=== PATIENT | female | born 1950 | race Caucasian/White ===

== ENCOUNTER 2016-10-22 09:32 | Outpatient (CLI) | payer OTHER | END 2016-10-22 09:33 | disposition home or self-care (01) | DX: E03.9 Hypothyroidism, unspecified (principal); E78.5 Hyperlipidemia, unspecified ==

== ENCOUNTER 2018-01-21 08:31 | Outpatient (CLI) | payer OTHER ==
[2018-01-21 09:01] LABS: BASOPHILS # (AUTO) 0.1 10^3/uL (0.0-0.1); EOSINOPHILS # (AUTO) 0.2 10^3/uL (0.0-0.7); EOSINOPHILS % (AUTO) 2.9 %; HGB - HEMOGLOBIN 14.1 g/dL (12.0-16.0); LYMPHOCYTES # (AUTO) 1.6 10^3/uL (1.5-3.5); LYMPHOCYTES % (AUTO) 28.3 %; MEAN CORPUSCULAR HEMOGLOBIN 31.6 pg (27.0-31.0); MEAN CORPUSCULAR HGB CONC 33.3 g/dL (32.0-36.0); MEAN CORPUSCULAR VOLUME 94.9 fL (81.0-99.0); MEAN PLATELET VOLUME 8.2 fL (7.9-10.8); MONOCYTES # (AUTO) 0.5 10^3/uL (0.0-1.0); MONOCYTES % (AUTO) 8.6 %; NEUTROPHILS # (AUTO) 3.3 10^3/uL (1.5-6.6); NEUTROPHILS % (AUTO) 59.2 %; PLT - PLATELET COUNT 290 10^3/uL (130-450); RED BLOOD COUNT 4.46 10^6/uL (4.20-5.40); RED CELL DISTRIBUTION WIDTH 14.1 % (12.0-15.0); WHITE BLOOD COUNT 5.6 x10^3/uL (4.8-10.8)
[2018-01-21 09:26] LABS: CHOL/HDL RATIO 3.2 (<4.4); CHOLESTEROL 170 mg/dL; HDL CHOLESTEROL 53 mg/dL; LDL CHOLESTEROL,CALCULATED 97 mg/dL; LDL/HDL RATIO 1.8 (<4.4); VLDL CHOLESTEROL 20 mg/dL
[2018-01-21 09:35] LABS: THYROID STIMULATING HORMONE 1.38 uIU/mL (0.34-5.60)
[2018-01-21 09:38] LABS: FREE T4 (FREE THYROXINE) 0.84 ng/dL (0.58-1.64)
== END 2018-01-21 08:32 | disposition home or self-care (01) ==
LOC: LAB 08:31
PROVIDERS: ATTEND Physician Assistant
DX: E78.5 Hyperlipidemia, unspecified (principal); E03.9 Hypothyroidism, unspecified
CPT/HCPCS: 36415; 80061; 83721; 84439; 84443; 85025

== ENCOUNTER 2018-01-29 09:02 | Outpatient (CLI) | payer OTHER ==
[2018-01-29 10:06] LABS: ALBUMIN 3.8 g/dL (3.2-5.5); ALBUMIN/GLOBULIN RATIO 1.1 (1.0-2.2); BILIRUBIN,TOTAL 0.7 mg/dL (0.2-1.0); CALCIUM 9.1 mg/dL (8.5-10.3); CREATININE 0.7 mg/dL (0.4-1.0); TOTAL PROTEIN 7.3 g/dL (6.7-8.2)
== END 2018-01-29 09:03 | disposition home or self-care (01) ==
LOC: LAB 09:02
PROVIDERS: ATTEND Physician Assistant
DX: E78.5 Hyperlipidemia, unspecified (principal)
CPT/HCPCS: 36415; 80053

== ENCOUNTER 2018-04-24 17:57 | Outpatient (CLI) | payer MEDICARE, OTHER ==
--- NOTE | 2018-04-25 03:44 | Ultrasound Report ---
Reason: R LOWER QUADRANT PAIN Procedure Date: 04/24/2018 Accession Number: [id number] / [id number] Procedure: US - Pelvic w/Transvaginal CPT Code: FULL RESULT: EXAM: PELVIC ULTRASOUND EXAM DATE: 04/24/2018 07:08 PM. CLINICAL HISTORY: Right lower quadrant pain. COMPARISON: None. TECHNIQUE: Realtime transabdominal pelvic scan performed to identify the uterus and adnexa and as an overview of other pelvic structures, followed by transvaginal scan to provide greater detail of the uterus and adnexa, with static image documentation. FINDINGS: Uterus: 5.7 x 2.4 x 4.4 cm, volume 31.0 cc. Anteverted position. Normal overall size and echotexture. Masses: None. Endometrium: Ill-defined and poorly seen but not grossly thickened. No vascular masses seen. Sonographic measurements on images are felt to be spurious. Cervix: Unremarkable. Ovaries: Neither visualized due to bowel gas. No adnexal masses seen. Free Fluid: None. Other: None. IMPRESSION: No etiology for right lower quadrant pain seen. Right ovary not visualized but no right adnexal mass seen. No free fluid. RADIA
== END 2018-04-24 17:58 | disposition home or self-care (01) ==
LOC: DI 17:57
PROVIDERS: ATTEND Physician Assistant
DX: R10.31 Right lower quadrant pain (principal)
CPT/HCPCS: 76830; 76856

== ENCOUNTER 2018-09-22 08:20 | Outpatient (CLI) | payer MEDICARE, OTHER ==
--- NOTE | 2018-09-23 08:10 | Mammography Report ---
Reason: SCREENING MAMMO Procedure Date: 09/22/2018 Accession Number: [id number] / [id number] Procedure: SHELLY - Screening Mammo w/Chano CPT Code: FULL RESULT: EXAM: Screening Mammo w/Chano DATE: 09/22/2018 9:08 AM CLINICAL HISTORY: Screening encounter. No reported risk factors. TECHNIQUE: Bilateral CC and MLO views were obtained. COMPARISON: 10/03/2015 through 02/27/2011. FINDINGS: The breasts demonstrate scattered fibroglandular densities bilaterally. There are coarse typically benign calcifications. No suspicious masses, clustered microcalcifications, or regions of architectural distortion are identified. IMPRESSION: Benign findings RECOMMENDATION: Routine annual screening unless otherwise clinically indicated. BIRADS CATEGORY 2: Benign findings STANDARD QUALIFYING STATEMENTS: 1. This examination was not reviewed with the aid of Computer-Aided Detection (CAD). 2. A negative or benign imaging report should not delay biopsy if clinically suspicious findings are present. Consider surgical consultation if warrented. More than 5% of cancers are not identified by imaging. 3. Dense breasts may obscure an underlying neoplasm. 4. This examination was reviewed with the aid of 3D breast imaging (tomosynthesis).
== END 2018-09-22 08:21 | disposition home or self-care (01) ==
LOC: DI 08:20
PROVIDERS: ATTEND Physician Assistant
DX: Z12.31 Encounter for screening mammogram for malignant neoplasm of breast (principal)
CPT/HCPCS: 77063; 77067

== ENCOUNTER 2019-02-23 | Outpatient (CLI) | payer MEDICARE, OTHER | END 2019-02-23 07:47 | disposition home or self-care (01) ==

== ENCOUNTER 2020-01-26 07:47 | Outpatient (CLI) | payer MEDICARE, OTHER ==
[2020-01-26 08:36] LABS: ALBUMIN 4.2 g/dL (3.2-5.5); ALBUMIN/GLOBULIN RATIO 1.3 (1.0-2.2); ALKALINE PHOSPHATASE 73 IU/L (42-121); ALT ALANINE AMINOTRANSFERASE 26 IU/L (10-60); AST ASPARTATE AMINOTRANSFERASE 28 IU/L (10-42); BILIRUBIN,TOTAL 0.5 mg/dL (0.2-1.0); BUN - BLOOD UREA NITROGEN 21 mg/dL (6-20); CALCIUM 9.2 mg/dL (8.5-10.3); CARBON DIOXIDE - CO2 27 mmol/L (21-32); CHLORIDE 99 mmol/L (101-111); CHOL/HDL RATIO 3.7 (<4.4); CHOLESTEROL 198 mg/dL; CREATININE 0.7 mg/dL (0.4-1.0); GLUCOSE 108 mg/dL (70-100); HDL CHOLESTEROL 54 mg/dL; LDL CHOLESTEROL,CALCULATED 119 mg/dL; LDL/HDL RATIO 2.2 (<4.4); SODIUM 137 mmol/L (135-145); TOTAL PROTEIN 7.5 g/dL (6.7-8.2); VLDL CHOLESTEROL 25 mg/dL
== END 2020-01-26 07:48 | disposition home or self-care (01) ==
LOC: LAB 07:47
PROVIDERS: ATTEND Nurse Practitioner Family
DX: E03.9 Hypothyroidism, unspecified (principal); E78.5 Hyperlipidemia, unspecified
CPT/HCPCS: 36415; 80053; 80061; 83721; 84443

== ENCOUNTER 2020-02-08 09:25 | Outpatient (CLI) | payer MEDICARE, OTHER ==
--- NOTE | 2020-02-08 10:18 | XRAY Report ---
PROCEDURE: Foot 3 View RT INDICATIONS: PAIN,MID-TARSAL JOINT RT FOOT TECHNIQUE: 3 views of the foot were acquired. COMPARISON: X-ray right foot, 03/17/2013. FINDINGS: Bones: No acute fractures or dislocations. There is an old fracture/deformity of the distal fifth m etatarsal shaft. No suspicious bony lesions. Mild metatarsus adductus and hallux valgus. Mild degene rative joint disease at the tarsometatarsal joints and multiple interphalangeal joints. Soft tissues: No tibiotalar joint effusion. Achilles tendon appears normal. IMPRESSION: 1. Mild metatarsus adductus and hallux valgus. 2. Mild degenerative joint disease. 2. Old distal fifth metatarsal shaft fracture. Reviewed by: Gali Walton MD on 02/08/2020 10:17 AM PDT Approved by: Gali Walton MD on 02/08/2020 10:17 AM PDT Station ID: [id number]
== END 2020-02-08 09:26 | disposition home or self-care (01) ==
LOC: DI 09:25
PROVIDERS: ATTEND Podiatrist
DX: M20.11 Hallux valgus (acquired), right foot (principal); Q66.221 Congenital metatarsus adductus, right foot

== ENCOUNTER 2020-02-24 10:11 | Outpatient (CLI) | payer MEDICARE, OTHER ==
--- NOTE | 2020-02-25 09:23 | Mammography Report ---
BILATERAL DIGITAL SCREENING MAMMOGRAM 3D/2D: 02/24/2020 CLINICAL: Routine screening. Comparison is made to exams dated: 05/21/2017 mammogram, 10/05/2014 mammogram - [facility], 04/21 mammogram, 02/27/2011 mammogram, 03/22/2009 mammogram, and 03/30/2008 mammogram - [facility]. There are scattered fibroglandular elements in both breasts. No significant masses, calcifications, or other findings are seen in either breast. There has been no significant interval change. IMPRESSION: NEGATIVE There is no mammographic evidence of malignancy. A 1 year screening mammogram is recommended. This exam was interpreted at Station ID: [id number]. NOTE: For mammograms, a report in lay terms will be sent to the patient. Approximately 15% of breast malignancies will not be visualized mammographically. In the management of a palpable breast mass, a negative mammogram must not discourage biopsy of a clinically suspicious lesion. Electronically Signed By: Flaquito Mims M.D. [email or web address]:02/24/2020 15:03:40 ACR BI-RADS Category 1: Negative 3341F PARENCHYMAL PATTERN: (A) - The breast(s) demonstrate(s) scattered fibroglandular densities. BI-RADS CATEGORY: (1) - 1 RECOMMENDATION: (ANNUAL) - Recommend routine annual screening mammography. [id number] 1 year screening LATERALITY: (B)
== END 2020-02-24 10:12 | disposition home or self-care (01) ==
LOC: DI 10:11
PROVIDERS: ATTEND Nurse Practitioner Family
DX: Z12.31 Encounter for screening mammogram for malignant neoplasm of breast (principal)
CPT/HCPCS: 77063; 77067

== ENCOUNTER 2020-02-24 10:12 | Outpatient (CLI) | payer MEDICARE, OTHER ==
--- NOTE | 2020-02-26 17:29 | DEXA Report ---
PROCEDURE: Dexa Spine and/or Hip INDICATIONS: POSTMNEOPAUSAL TECHNIQUE: Dual energy x-ray absorptiometry (DXA) was performed on a [employer] System. Regions measur ed are the AP Spine, femoral neck, and if needed forearm. COMPARISON: None. FINDINGS: Lumbar Spine: Bone Mineral Density 1.179 g/cm/cm,T score 0.0, normal Left Hip: Bone Mineral Density 1.020 g/cm/cm,T score 0.1, normal Left Femoral Neck: Bone Mineral Density 0.917 g/cm/cm, T score -0.9, normal (T score greater or equal to -1.0: NORMAL) (T score from -1.1 to -2.4: OSTEOPENIA) (T score less than or equal to -2.5 to: OSTEOPOROSIS) Impression: Normal bone density. Patients with diagnosis of osteoporosis or osteopenia should have regular bone mineral density assess ment. For those eligible for Medicare, routine testing is allowed once every 2 years. Testing frequ ency can be increased for patients who have rapidly progressing disease or for those who are receivin g medical therapy to restore bone mass. Reviewed by: Allyssa Drake MD, PhD on 02/24/2020 11:10 AM PDT Approved by: Allyssa Drake MD, PhD on 02/24/2020 11:10 AM PDT Station ID: [id number]
== END 2020-02-24 10:13 | disposition home or self-care (01) ==
LOC: DI 10:12
PROVIDERS: ATTEND Nurse Practitioner Family
DX: Z78.0 Asymptomatic menopausal state (principal)
CPT/HCPCS: 77080

== ENCOUNTER 2020-09-09 11:03 | Outpatient (CLI) | payer MEDICARE, OTHER ==
[2020-09-09 11:35] LABS: HGB - HEMOGLOBIN 13.8 g/dL (12.0-16.0); MEAN CORPUSCULAR HGB CONC 32.8 g/dL (32.0-36.0); MEAN CORPUSCULAR VOLUME 94.6 fL (81.0-99.0); MEAN PLATELET VOLUME 9.1 fL (7.9-10.8); RED BLOOD COUNT 4.45 10^6/uL (4.20-5.40); RED CELL DISTRIBUTION WIDTH 13.1 % (12.0-15.0); WHITE BLOOD COUNT 5.8 x10^3/uL (4.8-10.8)
[2020-09-09 11:57] LABS: ALBUMIN 4.1 g/dL (3.2-5.5); ALBUMIN/GLOBULIN RATIO 1.2 (1.0-2.2); ALKALINE PHOSPHATASE 68 IU/L (42-121); ALT ALANINE AMINOTRANSFERASE 21 IU/L (10-60); AST ASPARTATE AMINOTRANSFERASE 22 IU/L (10-42); BILIRUBIN,TOTAL 0.9 mg/dL (0.2-1.0); BUN - BLOOD UREA NITROGEN 22 mg/dL (6-20); CALCIUM 9.3 mg/dL (8.5-10.3); CARBON DIOXIDE - CO2 26 mmol/L (21-32); CHLORIDE 100 mmol/L (101-111); CHOL/HDL RATIO 3.3 (<4.4); CHOLESTEROL 196 mg/dL; CREATININE 0.7 mg/dL (0.4-1.0); GLUCOSE 105 mg/dL (70-100); HDL CHOLESTEROL 60 mg/dL; LDL CHOLESTEROL,CALCULATED 114 mg/dL; LDL/HDL RATIO 1.9 (<4.4); TOTAL PROTEIN 7.5 g/dL (6.7-8.2); VLDL CHOLESTEROL 22 mg/dL
== END 2020-09-09 11:04 | disposition home or self-care (01) ==
LOC: LAB 11:03
PROVIDERS: ATTEND Nurse Practitioner Family
DX: E03.9 Hypothyroidism, unspecified (principal)
CPT/HCPCS: 36415; 80053; 80061; 83721; 84443; 85027

== ENCOUNTER 2021-05-09 10:37 | Outpatient (CLI) | payer MEDICARE, OTHER ==
[2021-05-09 11:22] LABS: CREATININE 0.6 mg/dL (0.4-1.0)
[2021-05-09] MEDS ORDERED: IOVERSOL 320 100 ML VIAL IVP ONE ×2 (11:31→16:01)
--- NOTE | 2021-05-09 12:54 | CT Report ---
PROCEDURE: SOFT TISSUE NECK W INDICATIONS: PAIN AROUND ENDARTERECTOMY SCAR CONTRAST: IV CONTRAST: Optiray 320 ml: 100 PO CONTRAST: *NO PO CONTRAST TECHNIQUE: After the administration of intravenous contrast, 3.0 mm axial sections acquired from the sella to th e aortic arch. Additional oblique axial 3.0 mm sections acquired through the pharynx. 3 mm thick co larissa reformats were generated. For radiation dose reduction, the following was used: automated exp osure control, adjustment of mA and/or kV according to patient size. COMPARISON: None. FINDINGS: Image quality: Excellent. Lymph nodes: No enlarged lymph nodes seen throughout the neck. Vessels: Visualized vasculature appears patent. Neck spaces: In this patient with this given history, scrutiny is given to the subcutaneous tissues involving the left carotid endarterectomy scar. Within this region, no abnormal soft tissue can be se en. No focal fluid collections are seen to suggest abscess. A normal-appearing sternocleidomastoid mu scle can be seen. The oropharynx, nasopharynx, and pharynx demonstrate no mucosal lesions. The vocal cords, false voca l cords, pyriform sinuses, epiglottis, vallecula, and tongue base all appear normal. Glands: The parotid and submandibular glands appear normal. The thyroid is normal in size and there are no incidental findings. Miscellaneous: Visualized brain and orbits appear normal. Lung apices appear clear. Superficial so ft tissues appear normal. Bones: No suspicious bony lesions. Visualized sinuses and mastoids appear unremarkable. Moderate c ervical spine degenerative changes are seen. IMPRESSION: No significant abnormality can be seen at the site of the left carotid endarterectomy scar. No abnorm al soft tissue or abscess collections can be seen. No enlarged lymph nodes are detected. Incidental note is made of: Moderate cervical spine degenerative change Reviewed by: Siddharth Oconnor MD on 05/09/2021 11:52 AM MARTHA Approved by: Siddharth Oconnor MD on 05/09/2021 11:52 AM MARTHA Station ID: [id number]
== END 2021-05-09 10:38 | disposition home or self-care (01) ==
LOC: DI 10:37
PROVIDERS: ATTEND Nurse Practitioner Family
DX: I77.9 Disorder of arteries and arterioles, unspecified (principal); Z98.890 Other specified postprocedural states; Z01.812 Encounter for preprocedural laboratory examination
CPT/HCPCS: 36415; 70491; 82565; Q9967

== ENCOUNTER 2021-06-30 09:29 | Outpatient (CLI) | payer MEDICARE, OTHER ==
[2021-06-30 09:54] LABS: BASOPHILS # (AUTO) 0.1 10^3/uL (0.0-0.1); BASOPHILS % (AUTO) 0.9 %; EOSINOPHILS # (AUTO) 0.1 10^3/uL (0.0-0.7); EOSINOPHILS % (AUTO) 2.2 %; HCT - HEMATOCRIT 41.7 % (37.0-47.0); HGB - HEMOGLOBIN 13.9 g/dL (12.0-16.0); LYMPHOCYTES # (AUTO) 1.4 10^3/uL (1.5-3.5); LYMPHOCYTES % (AUTO) 24.6 %; MEAN CORPUSCULAR HEMOGLOBIN 31.2 pg (27.0-31.0); MEAN CORPUSCULAR HGB CONC 33.3 g/dL (32.0-36.0); MEAN CORPUSCULAR VOLUME 93.5 fL (81.0-99.0); MEAN PLATELET VOLUME 9.3 fL (7.9-10.8); MONOCYTES # (AUTO) 0.5 10^3/uL (0.0-1.0); MONOCYTES % (AUTO) 8.3 %; NEUTROPHILS # (AUTO) 3.5 10^3/uL (1.5-6.6); NEUTROPHILS % (AUTO) 63.6 %; PLT - PLATELET COUNT 338 10^3/uL (130-450); RED BLOOD COUNT 4.46 10^6/uL (4.20-5.40); RED CELL DISTRIBUTION WIDTH 12.9 % (12.0-15.0); WHITE BLOOD COUNT 5.5 x10^3/uL (4.8-10.8)
[2021-06-30 10:14] LABS: ALBUMIN 4.2 g/dL (3.2-5.5); ALBUMIN/GLOBULIN RATIO 1.4 (1.0-2.2); ALKALINE PHOSPHATASE 62 IU/L (42-121); ALT ALANINE AMINOTRANSFERASE 19 IU/L (10-60); AST ASPARTATE AMINOTRANSFERASE 20 IU/L (10-42); BILIRUBIN,TOTAL 0.8 mg/dL (0.2-1.0); BUN - BLOOD UREA NITROGEN 19 mg/dL (6-20); CARBON DIOXIDE - CO2 27 mmol/L (21-32); CHLORIDE 101 mmol/L (101-111); CHOL/HDL RATIO 3.6 (<4.4); CHOLESTEROL 172 mg/dL; CREATININE 0.7 mg/dL (0.4-1.0); GFR - MDRD 83 (>89); GLUCOSE 107 mg/dL (70-100); HDL CHOLESTEROL 48 mg/dL; LDL CHOLESTEROL,CALCULATED 103 mg/dL; LDL/HDL RATIO 2.1 (<4.4); POTASSIUM 4.1 mmol/L (3.5-5.0); SODIUM 138 mmol/L (135-145); TOTAL PROTEIN 7.3 g/dL (6.7-8.2); TRIGLYCERIDES 107 mg/dL; URIC ACID 6.3 mg/dL (2.6-7.2); VLDL CHOLESTEROL 21 mg/dL
[2021-07-01 10:32] LABS: HEPATITIS C ANTIBODY NON-REACTIVE (NON-REACTIVE)
== END 2021-06-30 09:30 | disposition home or self-care (01) ==
LOC: LAB 09:29
PROVIDERS: ATTEND Internal Medicine
DX: M25.50 Pain in unspecified joint (principal); Z13.6 Encounter for screening for cardiovascular disorders; Z79.899 Other long term (current) drug therapy; Z82.49 Family history of ischemic heart disease and other diseases of the circulatory system; Z11.59 Encounter for screening for other viral diseases; E78.5 Hyperlipidemia, unspecified; E03.9 Hypothyroidism, unspecified; I77.9 Disorder of arteries and arterioles, unspecified
CPT/HCPCS: 36415; 80053; 80061; 83721; 84443; 84550; 85025; 86803

== ENCOUNTER 2021-07-13 16:03 | Outpatient (CLI) | payer MEDICARE, OTHER ==
--- NOTE | 2021-07-13 16:31 | XRAY Report ---
PROCEDURE: Hand 3 View LT INDICATIONS: ARTHRALGIA OF LEFT HAND TECHNIQUE: 3 views of the hand(s) acquired. COMPARISON: None FINDINGS: Bones: No fractures or dislocations. Moderate first CMC joint osteoarthritis. Osteoarthritic degener ative changes noted in the first through fifth DIP joints most pronounced in the second and fifth DIP joints. Mild osteophytic degenerative changes noted in the second through fifth PIP joints. Soft tissues: No suspicious soft tissue calcifications. Soft tissue prominence noted in the third di git dorsal to the third DIP joint. IMPRESSION: 1. Osteoarthritis as described above. 2. No acute osseous lesion. If there persistent symptoms or continued clinical concern for pathology, then repeat plain film radiographs (7-10 days) or advanced imaging (CT, MR, bone scan) should be con sidered for further evaluation. 3. Nonspecific soft tissue prominence involving the third finger with dorsal to the third DIP joint. MRI could be performed for additional evaluation if clinically indicated. Reviewed by: Allyssa Drake MD, PhD on 07/13/2021 4:29 PM PST Approved by: Allyssa Drake MD, PhD on 07/13/2021 4:29 PM PST Station ID: [id number]
== END 2021-07-13 16:04 | disposition home or self-care (01) ==
LOC: DI 16:03
PROVIDERS: ATTEND Internal Medicine
DX: M19.042 Primary osteoarthritis, left hand (principal); R93.6 Abnormal findings on diagnostic imaging of limbs; R93.89 Abnormal findings on diagnostic imaging of other specified body structures

== ENCOUNTER 2021-10-19 15:48 | Outpatient (CLI) | payer MEDICARE, OTHER ==
--- NOTE | 2021-10-20 15:10 | Mammography Report ---
BILATERAL DIGITAL SCREENING MAMMOGRAM 3D/2D: 10/19/2021 CLINICAL: Routine screening. Comparison is made to exams dated: 02/24/2020 mammogram - [facility] and 05/21/2017 mammogram - [facility]. There are scattered fibroglandular elements in both breasts. No significant masses, calcifications, or other findings are seen in either breast. There has been no significant interval change. IMPRESSION: NEGATIVE There is no mammographic evidence of malignancy. A 1 year screening mammogram is recommended. This exam was interpreted at Station ID: [id number]. NOTE: For mammograms, a report in lay terms will be sent to the patient. Approximately 15% of breast malignancies will not be visualized mammographically. In the management of a palpable breast mass, a negative mammogram must not discourage biopsy of a clinically suspicious lesion. Electronically Signed By: Trung Wilhelm M.D. ar/penrad:10/19/2021 17:11:21 ACR BI-RADS Category 1: Negative 3341F PARENCHYMAL PATTERN: (A) - The breast(s) demonstrate(s) scattered fibroglandular densities. BI-RADS CATEGORY: (1) - 1 RECOMMENDATION: (ANNUAL) - Recommend routine annual screening mammography. [id number] 1 year screening LATERALITY: (B)
== END 2021-10-19 15:49 | disposition home or self-care (01) ==
LOC: DI.N 15:48
PROVIDERS: ATTEND Internal Medicine
DX: Z12.31 Encounter for screening mammogram for malignant neoplasm of breast (principal)

== ENCOUNTER 2022-11-27 13:10 | Emergency (ER) | payer MEDICARE, OTHER ==
--- NOTE | 2022-11-27 14:25 | ED Physician Documentation ---
History of Present Illness - Stated complaint Stated Complaint: FALL RIB PX - Chief complaint Chief Complaint: Trauma Ch/Bk - Additonal information Additional information: Patient 71-year-old female presenting with left-sided rib pain. Fell while in her old gardening shed landing on her left-sided ribs. Denies head trauma or loss of consciousness. Reports initially felt the "wind knocked out of me". Was doing well at home but had pain worsening today. Contacted her primary care doctor and was referred to the emergency department. PD PAST MEDICAL HISTORY - Present Medications Home Medications: Ambulatory Orders Medication Instructions Recorded Confirmed HYDROcod/ACETAM 5/325 [[place] 5/325] 1 - 2 ea PO Q6H PRN #14 tablet 11/27/22 Levothyroxine Sodium 50 mcg PO DAILY 11/27/22 11/27/22 [Levothyroxine] Pravastatin [Pravachol] 40 mg PO DAILY 11/27/22 11/27/22 estradioL [Estradiol] 1 each TD 11/27/22 11/27/22 - Allergies Allergies/Adverse Reactions: Allergies Allergy/AdvReac Type Severity Reaction Status Date / Time No Known Drug Allergies Allergy Verified 11/27/22 13:23 Results - Vitals Vitals: Vital Signs - 24 hr 11/27/22 11/27/22 11/27/22 13:20 14:24 14:33 Temperature 37 C Heart Rate 72 Respiratory 16 17 16 Rate Blood Pressure 156/83 H O2 Saturation 97 11/27/22 11/27/22 14:52 14:58 Temperature 36.6 C Heart Rate 67 Respiratory 16 17 Rate Blood Pressure 127/78 O2 Saturation 99 Oxygen O2 Source Room air PD Medical Decision Making - ED course Complexity details: reviewed results, re-evaluated patient, d/w patient ED course: Patient 71-year-old female presenting to the emergency department with left- sided flank pain. This is after fall that occurred 2 days ago. Pain exacerbated with deep inspiration. No abdominal tenderness, guarding, rebound or rigidity. X-rays negative for acute fracture. Patient otherwise hemodynamically stable. Given incentive spirometer for likely contused ribs. Will provide short course of Vicodin. Will encourage careful follow-up with primary care. Discussed return precautions prior to discharge. Departure - Departure Disposition: Home, Self Care Clinical Impression: Rib pain on left side Prescriptions: HYDROcod/ACETAM 5/325 [[place] 5/325] 1 - 2 ea PO Q6H PRN #14 tablet PRN Reason: Pain Comments: Thank you for allowing us to care for you today at [facility]. Prescription sent electronically to [facility] in [place]. The x-rays taken today did not show any acute rib fractures. I would like you to use the incentive spirometer provided here in the emergency department for lung health. I have also written a prescription for Vicodin to help with pain. Please be aware that this medication is sedating and habit- forming. It should not be used if you are operating a motor vehicle, using of a machinery or you are the sole membership sales representative of young children. It cannot be refilled from the emergency department. I would like you to follow-up with your primary care doctor. If it anytime you develop new or worsening symptoms please not hesitate to return. Discharge Date/Time: 11/27/22 15:03
--- NOTE | 2022-11-27 14:42 | XRAY Report ---
PROCEDURE: Ribs w/PA Chest LT INDICATIONS: trauma TECHNIQUE: 2 views of the left ribs were acquired, along with a single view chest. COMPARISON: None. FINDINGS: Surgical changes and devices: None. Bones and chest wall: No fractures or dislocations. No suspicious bony lesions. Overlying soft tis sues appear unremarkable. Lungs and pleura: Low lung volumes. No dense consolidation. Possible basal atelectasis versus early airspace disease. Mediastinum: Mediastinal contours appear normal. Heart size is normal. IMPRESSION: No displaced fracture. Possible basal atelectasis/early airspace disease, consider follow-up chest CT if there is high concern for occult injury or lung parenchymal process. Reviewed by: Dann Hurst MD on 11/27/2022 2:41 PM PDT Approved by: Dann Hurst MD on 11/27/2022 2:41 PM PDT Station ID: [id number]
[2022-11-27 15:00] VITALS: BP 127/78
== END 2022-11-27 15:03 | disposition home or self-care (01) ==
LOC: ED 13:10
DX: R07.81 Pleurodynia (principal); W18.30XA Fall on same level, unspecified, initial encounter; Y92.89 Other specified places as the place of occurrence of the external cause; Z79.899 Other long term (current) drug therapy
CPT/HCPCS: 99283

== ENCOUNTER 2023-02-01 14:06 | Outpatient (CLI) | payer MEDICARE, OTHER ==
--- NOTE | 2023-02-01 15:34 | DEXA Report ---
PROCEDURE: Dexa Spine and/or Hip INDICATIONS: POST MENOPAUSAL TECHNIQUE: Dual energy x-ray absorptiometry (DXA) was performed on a [employer] System. Regions measur ed are the AP Spine, femoral neck, and if needed forearm. COMPARISON: 02/24/2020 FINDINGS: Lumbar Spine: Bone Mineral Density 1.138 g/cm/cm,T score -0.3. There is 3.5% decrease in total lumbar spine bone m ineral density. Left Femoral Neck: Bone Mineral Density 0.881 g/cm/cm, T score -1.1. Left Hip: Bone Mineral Density 0.964 g/cm/cm,T score -0.3. There is interval 5.5% decrease in left hip bone den sity. (T score greater or equal to -1.0: NORMAL) (T score from -1.1 to -2.4: OSTEOPENIA) (T score less than or equal to -2.5 to: OSTEOPOROSIS) Impression: By WHO criteria, this patient has low bone density (osteopenia). Patients with diagnosis of osteoporosis or osteopenia should have regular bone mineral density assess ment. For those eligible for Medicare, routine testing is allowed once every 2 years. Testing frequ ency can be increased for patients who have rapidly progressing disease or for those who are receivin g medical therapy to restore bone mass. Reviewed by: Uli Moore MD on 02/01/2023 3:33 PM PDT Approved by: Uli Moore MD on 02/01/2023 3:33 PM PDT Station ID: [id number]
--- NOTE | 2023-02-02 03:07 | Ultrasound Report ---
PROCEDURE: Carotid Doppler Complete INDICATIONS: CAROTID ARTERY DISEASE TECHNIQUE: Color and pulse Doppler interrogation was performed of both carotid systems, with image documentation and velocity measurements. COMPARISON: 06/29/2011. FINDINGS: Right side: Brachial blood pressure: 134/73 mm Hg. Common carotid artery peak systolic velocity: 61 cm/sec. Internal carotid artery peak systolic velocity: 81 cm/sec. Internal carotid artery end diastolic velocity: 29 cm/sec. External carotid artery peak systolic velocity: 73 cm/sec. ICA/CCA peak systolic ratio: 1.3 . Burgess scale imaging description: There is mild scattered echogenic plaque. Percent internal carotid artery stenosis: Less than 50%. Vertebral artery: Flow direction is antegrade. Left side: Brachial blood pressure: 132/67 mm Hg. Common carotid artery peak systolic velocity: 51 cm/sec. Internal carotid artery peak systolic velocity: 86 cm/sec. Internal carotid artery end diastolic velocity: 35 cm/sec. External carotid artery peak systolic velocity: 94 cm/sec. ICA/CCA peak systolic ratio: 1.7 . Burgess scale imaging description: There is mild partially calcified plaque in the common carotid artery extending into the proximal carotid bulb. Percent internal carotid artery stenosis: Less than 50%.. Vertebral artery: Flow direction is antegrade. IMPRESSION: 1. In the right internal carotid artery, there is less than 50% based on peak systolic velocity crite sally. 2. In the left internal carotid artery, there is less than 50% based on peak systolic velocity criter ia. 3. Antegrade blood flow within the right vertebral artery. 4. Antegrade blood flow within the left vertebral artery. The estimate of stenosis included in the report of the imaging study was calculated using the [facility]-end orsed standards of carotid artery stenosis. Reviewed by: Flaquito Bernard MD on 02/02/2023 3:06 AM PDT Approved by: Flaquito Bernard MD on 02/02/2023 3:06 AM PDT Station ID: [id number]
== END 2023-02-01 14:07 | disposition home or self-care (01) ==
LOC: DI 14:06
PROVIDERS: ATTEND Internal Medicine
DX: Z78.0 Asymptomatic menopausal state (principal); M85.80 Other specified disorders of bone density and structure, unspecified site; I65.23 Occlusion and stenosis of bilateral carotid arteries
CPT/HCPCS: 93880

== ENCOUNTER 2023-03-29 09:18 | Outpatient (CLI) | payer MEDICARE, OTHER ==
--- NOTE | 2023-03-29 15:09 | Mammography Report ---
BILATERAL DIGITAL SCREENING MAMMOGRAM 3D/2D: 03/29/2023 CLINICAL: Routine screening. Comparison is made to exams dated: 10/19/2021 mammogram, 02/24/2020 mammogram - eTelemetry, 05/21/2017 mammogram, and 10/05/2014 mammogram - . There are scattered areas of fibroglandular density in both breasts (category b / 25%-50% glandular t issue). There are benign calcifications in both breasts. No significant masses, calcifications, or other findings are seen in either breast. There has been no significant interval change. IMPRESSION: BENIGN There is no mammographic evidence of malignancy. A 1 year screening mammogram is recommended. Based on the Tyrer Cuzick model (a risk assessment model) the patients lifetime risk is 4.3% and her 10 year risk is 2.7%. According to the ACR, ACS, and NCCN guidelines, an annual breast MRI exam uriah g with mammogram is recommended if the patients lifetime risk is 20% or greater. This exam was interpreted at Station ID: [id number]. NOTE: For mammograms, a report in lay terms will be sent to the patient. Approximately 15% of breast malignancies will not be visualized mammographically. In the management of a palpable breast mass, a negative mammogram must not discourage biopsy of a clinically suspicious lesion. Electronically Signed By: Mike atkinson/keyla:03/29/2023 12:41:02 letter sent: No_Letter ACR BI-RADS Category 2: Benign Finding(s) 3342F PARENCHYMAL PATTERN: (A) - The breast(s) demonstrate(s) scattered fibroglandular densities. BI-RADS CATEGORY: (2) - 2 Mammogram [id number] 1 year screening LATERALITY: (B)
== END 2023-03-29 09:19 | disposition home or self-care (01) ==
LOC: DI 09:18
PROVIDERS: ATTEND Internal Medicine
DX: Z12.31 Encounter for screening mammogram for malignant neoplasm of breast (principal)

== ENCOUNTER 2023-09-19 12:17 | Outpatient (CLI) | payer MEDICARE, OTHER ==
--- NOTE | 2023-09-19 12:55 | Ultrasound Report ---
PROCEDURE: Duplex Ext Veins Right INDICATIONS: EDEMA TECHNIQUE: Real-time imaging, as well as color and pulse Doppler interrogation, were performed of the lower extr emity deep veins from the inguinal ligament to the popliteal fossa. Attempted visualization of the ca lf veins was performed. COMPARISON: None. FINDINGS: The deep veins are normally compressible, and free of intraluminal thrombus. Color and pu lse Doppler demonstrate normal phasic intraluminal flow. There is normal augmentation response to di stal compression maneuver. IMPRESSION: No deep venous thrombosis of the visualized lower extremity. Reviewed by: Shana Cannon MD on 09/19/2023 12:53 PM PST Approved by: Shana Cannon MD on 09/19/2023 12:53 PM PST Station ID: [id number]
== END 2023-09-19 12:18 | disposition home or self-care (01) ==
LOC: DI 12:17
PROVIDERS: ATTEND Internal Medicine
DX: R60.9 Edema, unspecified (principal)

== ENCOUNTER 2023-09-28 07:29 | Outpatient (CLI) | payer MEDICARE, OTHER ==
--- NOTE | 2023-10-01 08:24 | MRI Report ---
PROCEDURE: Knee RT WO INDICATIONS: RIGHT KNEE PAIN TECHNIQUE: Noncontrast sagittal PD fast spin echo and T2 fast spin echo with fat saturation, sagittal 3-D gradie nt sequence with fat saturation; coronal T1 spin echo and PD fast spin echo with fat saturation, and axial PD fast spin echo with fat saturation through the knee. COMPARISON: None. FINDINGS: Image quality: Excellent. Menisci: There is medial meniscal extrusion and horizontal tear involving the posterior horn the medi al meniscus. Lateral menisci demonstrate normal morphology and internal signal. The meniscal root li gaments appear intact. Cruciate ligaments: There is chronic partial tear/scarring or mucoid degeneration of the anterior cru ciate ligament. The posterior cruciate ligament is appear. Medial structures: The medial collateral ligament appears intact. The semimembranosus tendon insert ions and meniscocapsular junction appear intact. Visualized portions of the pes anserinus tendons ap pear normal. No abnormal bursal fluid. Lateral structures: There is partial tear of the small lateral collateral ligament (series 6 image 20 ), which is likely chronic. There is a 0.7 x 1.0 cm cyst in the lateral aspect of the knee joint, whi ch may be a synovial cyst, ganglion cyst or meniscal cyst. Biceps femoris tendon appear intact. The popliteus tendon appears normal. Iliotibial band appears normal. Anterior structures: The quadriceps and patellar tendons appear intact. Low-grade patellar tendinit is and quadriceps tendinitis. Patellar alignment is normal. No femoral trochlear dysplasia or ventra l trochlear prominence. No edema in the infrapatellar fat pad. Bones and cartilage: No bone marrow contusions or fractures. There is tricompartmental cartilage thi nning and fibrillation, most pronounced in the medial femorotibial compartment. There is subchondral edema involving the tibial eminence. Joint space: There is small knee joint effusion. There is a tiny Mendez's cyst. Normal appearing syn ovial plicae are incidentally noted. There is a 0.6 cm intra-articular body in the anterior aspect o f the intercondylar notch (series 4 image 2; series 7 image 21). IMPRESSION: 1. Medial meniscal extrusion and horizontal tear of the posterior horn of the medial meniscus. 2. Chronic partial tear/scarring versus mucoid degeneration of ACL. 3. Chronic partial tear of the proximal LCL. 4. Tricompartmental cartilage thinning and fibrillation, most pronounced in the medial femorotibial c ompartment. 5. A small intra-articular body in the anterior intercondylar notch. 6. Small knee joint effusion. 7. Mild quadriceps tendinitis and patellar tendinitis. Reviewed by: Gali Walton MD on 10/01/2023 7:23 AM AKDT Approved by: Gali Walton MD on 10/01/2023 7:23 AM AKDT Station ID: [id number]
== END 2023-09-28 07:30 | disposition home or self-care (01) ==
LOC: DI 07:29
PROVIDERS: ATTEND Internal Medicine
DX: S83.241A Other tear of medial meniscus, current injury, right knee, initial encounter (principal); M76.51 Patellar tendinitis, right knee; M23.41 Loose body in knee, right knee; S83.511D Sprain of anterior cruciate ligament of right knee, subsequent encounter; S83.421D Sprain of lateral collateral ligament of right knee, subsequent encounter; M25.461 Effusion, right knee; M23.91 Unspecified internal derangement of right knee

== ENCOUNTER 2023-10-31 17:12 | Emergency (ER) | payer MEDICARE, OTHER ==
[2023-10-31 17:32] VITALS: O2SAT 98
[2023-10-31 18:26] VITALS: BP 149/66
--- NOTE | 2023-10-31 18:35 | ED Physician Documentation ---
History of Present Illness - Stated complaint Stated Complaint: HEART PALPITATIONS - Chief complaint Chief Complaint: Cardiac - Additonal information Additional information: 72-year-old female presents emergency department for heart palpitations. Patient said that she recently had a steroid injection for her knee about 3 to 4 days ago since then she has been having difficulty sleeping, hot flashes at night with diaphoresis, headache. Today she started to notice some mild heart palpitations. She called the clinic to let them know about these symptoms and they informed her to come into the emergency department. She says that she does not want to be here she has no chest pain or shortness of breath no dizziness but does have these persistent heart palpitations. Her headache has resolved and her other symptoms have also fully resolved but said that she wanted to come in because the clinic who did the injection told her to. No recent fevers or chills no nausea or vomiting. PD PAST MEDICAL HISTORY - Past Medical History Past Medical History: Yes Cardiovascular: High cholesterol Endocrine/Autoimmune: HyPOthyroidism - Past Surgical History Past Surgical History: No - Present Medications Home Medications: Ambulatory Orders Medication Instructions Recorded Confirmed HYDROcod/ACETAM 5/325 [Ackley 5/325] 1 - 2 ea PO Q6H PRN #14 tablet 11/27/22 10/31/23 Levothyroxine Sodium 50 mcg PO DAILY 11/27/22 10/31/23 [Levothyroxine] Pravastatin [Pravachol] 40 mg PO DAILY 11/27/22 10/31/23 estradioL [Estradiol] 1 each TD UD 11/27/22 10/31/23 - Allergies Allergies/Adverse Reactions: Allergies Allergy/AdvReac Type Severity Reaction Status Date / Time No Known Drug Allergies Allergy Verified 10/31/23 17:15 - Social History Does the pt smoke?: No Smoking Status: Never smoker Does the pt drink ETOH?: No Does the pt have substance abuse?: No - Immunizations Immunizations are current?: Yes PD ED PE NORMAL - Vitals Vital signs reviewed: Yes - General General: Alert and oriented X 3, No acute distress, Well developed/nourished - HEENT HEENT: Atraumatic - Neck Neck: Supple, no meningeal sign - Cardiac Cardiac: RRR, No murmur, No gallop, Strong equal pulses - Respiratory Respiratory: No respiratory distress, Clear bilaterally - Abdomen Abdomen: Non tender Results - Vitals Vitals: Vital Signs - 24 hr 04/11/24 04/11/24 17:15 18:23 Temperature 36.8 C 36.7 C Heart Rate 85 78 Respiratory 16 20 Rate Blood Pressure 155/76 H 149/66 H O2 Saturation 98 98 Oxygen O2 Source Room air - EKG (time done) 1723 EKG releavant findings:: EKG personally interpreted by author of this note. Relevant findings are: Rate: Rate (enter#) (81) Rhythm: NSR [place]: Normal Intervals: Normal [place] QRS: Normal Ischemia: Normal ST segments Computer interpretation: Agree with computer PD Medical Decision Making - ED course ED course: 72-year-old female presents emergency department for heart palpitations. ECG was completed which shows normal sinus rhythm. Patient reports that she was experiencing heart palpitations while was sitting there watching her heart rhythm and I was unable to see any sort of arrhythmia or other abnormalities on her EKG. Patient denies any chest pain or shortness of breath so I held off on doing any additional labs troponins or chest x-ray. I believe that the symptoms she is experiencing is a side effect from the steroid injection that patient had received a couple days ago. She was told if she starts to develop any chest pain or shortness of breath to come back to the emergency department for further evaluation but given that she has an unremarkable EKG believe that she is safe for discharge at this time she is told to follow with primary care provider for further evaluation if palpitations continue but at this point time she is safe for discharge. Departure - Departure Disposition: 01 Home, Self Care Clinical Impression: Palpitation Medication reaction Qualifiers: Encounter type: initial encounter Qualified Code(s): T50.905A - Adverse effect of unspecified drugs, medicaments and biological substances, initial encounter Instructions: ED Palpitations Comments: Thank you for trusting us with your care. I believe that you are experiencing side effects from your steroid injection to your knee. Give it a couple days for it to fully come out of your system make sure that you are drinking plenty of fluids and resting as needed eating a healthy well-balanced diet. Please come back to the emergency department for starting develop any chest pain, shortness of breath, dizziness confusion or any other concerning emergent symptoms. Follow-up with your primary care as needed about today's ER visit if your heart palpitations do not resolve after about a week or so follow-up with PCP for further outpatient workup. Forms: PCP List Discharge Date/Time: 10/31/23 18:38
== END 2023-10-31 18:38 | disposition home or self-care (01) ==
LOC: ED 17:12
DX: R00.2 Palpitations (principal); T50.905A Adverse effect of unspecified drugs, medicaments and biological substances, initial encounter
CPT/HCPCS: 93005; 99283

== ENCOUNTER 2024-03-31 09:03 | Outpatient (CLI) | payer MEDICARE, OTHER ==
--- NOTE | 2024-04-01 11:27 | Mammography Report ---
BILATERAL DIGITAL SCREENING MAMMOGRAM 3D/2D: 03/31/2024 CLINICAL: Routine screening. Comparison is made to exams dated: 03/29/2023 mammogram, 10/19/2021 mammogram, 02/24/2020 mammogram - [facility], 10/05/2014 mammogram, and 05/21/2017 mamm[address] - [facility]. There are scattered areas of fibroglandular density (category b / 25%-50% glandular tissue). There are benign calcifications in both breasts. No significant masses, calcifications, or other findings are seen in either breast. There has been no significant interval change. IMPRESSION: BENIGN There is no mammographic evidence of malignancy. A 1 year screening mammogram is recommended. Based on the Tyrer Cuzick model (a risk assessment model) the patient's lifetime risk is 4.0% and her 10 year risk is 2.8%. According to the ACR, ACS, and NCCN guidelines, an annual breast MRI exam uriah g with mammogram is recommended if the patient's lifetime risk is 20% or greater. This exam was interpreted at Station ID: [id number]. NOTE: For mammograms, a report in lay terms will be sent to the patient. Approximately 15% of breast malignancies will not be visualized mammographically. In the management of a palpable breast mass, a negative mammogram must not discourage biopsy of a clinically suspicious lesion. Electronically Signed By: Mansi [email or web address]/[email or web address]:03/31/2024 16:54:34 letter sent: No_Letter ACR BI-RADS Category 2: Benign 3342F PARENCHYMAL PATTERN: (A) - The breast(s) demonstrate(s) scattered fibroglandular densities. BI-RADS CATEGORY: (2) - 2 RECOMMENDATION: (ANNUAL) - Recommend routine annual screening mammography. [id number] 1 year screening LATERALITY: (B)
== END 2024-03-31 09:04 | disposition home or self-care (01) ==
LOC: DI 09:03
PROVIDERS: ATTEND Internal Medicine
DX: Z12.31 Encounter for screening mammogram for malignant neoplasm of breast (principal)